=== PATIENT | female | born 1940 | race Caucasian/White ===

== ENCOUNTER 2020-08-09 11:58 | Emergency (ER) | payer MEDICARE, OTHER | END 2020-08-09 13:35 | disposition home or self-care (01) | LOC: MADERS 11:58 | DX: S81.812A Laceration without foreign body, left lower leg, initial encounter (principal); I10 Essential (primary) hypertension; I48.91 Unspecified atrial fibrillation; Z79.899 Other long term (current) drug therapy; W45.8XXA Other foreign body or object entering through skin, initial encounter | CPT/HCPCS: 12002 ==

== ENCOUNTER 2020-09-24 17:46 | Emergency (ER) | payer MEDICARE, OTHER ==
--- NOTE | 2020-09-24 18:43 | RAD ---
LEFT HIP RADIOGRAPHS TWO VIEWS: 09/24/20 PROVIDED CLINICAL HISTORY: Pain status post fall. FINDINGS: There is a fracture of the proximal left femur which is probable basicervical given lack of apparent lesser trochanteric involvement. 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 Left hip joint space appears maintain ed. Extensive vascular calcifications are seen. IMPRESSION: Displaced left proximal femoral fracture. POS: SEVEN
--- NOTE | 2020-09-24 18:46 | RAD ---
LEFT KNEE RADIOGRAPHS FOUR VIEWS: 09/24/20 PROVIDED CLINICAL HISTORY: Pain status post injury. FINDINGS: Low grade chondroid lesion is demonstrated involving the distal femoral metaphyseal region. Vascular calcification is noted. Prominent medial femorotibial joint space loss. Chondrocalcinosis. Possible k nee joint effusion. IMPRESSION: No evidence for an acute osseous abnormality. If there is persistent clinical concern, conservative m anagement and follow-up imaging are advised. POS: SEVEN
[2020-09-24] MEDS ORDERED: Fentanyl 100 MCG/2 ML VIAL ONE (19:21)
== END 2020-09-24 20:37 | disposition short-term general hospital (02) ==
LOC: MADERS 17:46
DX: S72.142A Displaced intertrochanteric fracture of left femur, initial encounter for closed fracture (principal); I48.91 Unspecified atrial fibrillation; I10 Essential (primary) hypertension; Z79.899 Other long term (current) drug therapy; V89.9XXA Person injured in unspecified vehicle accident, initial encounter
CPT/HCPCS: 96374; J3010

== ENCOUNTER 2021-01-23 11:27 | Inpatient (IN) | payer MEDICARE, OTHER ==
[2021-01-23 12:43] LABS: Bilirubin Negative (Negative); Blood, Urine Moderate (Negative); Clarity Slightly Cloudy (Clear); Glucose, Urine (Dipstick) Negative (Negative); Ketone, Urine Negative (Negative); Leukocyte Moderate (Negative); Nitrite Negative (Negative); Protein, Urine (Dipstick) 30 mg/dL (Neg-Trace); Specific Gravity, Urine 1.025 (1.005-1.030); Urobilinogen 0.2 mg/dL (Less than 2)
[2021-01-23 12:49] LABS: MDiff Complete? YES; Manual Diff?? YES; Mean Corpuscular Hemoglobin 27.2 pg (27.0-31.0); Mean Corpuscular Volume 90.6 fL (78.0-98.0); Mean Platelet Volume 7.6 fL (7.4-10.4); Platelet Count 323 thou/uL (130-400); RBC Distribution Width 15.8 % (11.5-14.5); Red Blood Cell (RBC) Count 4.44 mill/uL (4.20-5.40); White Blood Cell (WBC) Count 14.4 thou/uL (4.8-10.8)
[2021-01-23 12:50] LABS: Anisocytosis SLIGHT = 6-15 cells (100X) (0-5/hpf); Band 2 % (5-11); Eosinophils 1 % (0-10); Lymphocytes 18 % (21-51); Monocytes 10 % (0-10); Neutrophil 69 % (42-75); Platelet Morphology Comment Appears Adequate
[2021-01-23 12:51] LABS: ALT (SGPT) Less than 7 U/L (8-55); AST (SGOT) 16 U/L (5-34); Alkaline Phosphatase 102 U/L (40-110); Anion Gap 16 mmol/L (10-20); BUN (Urea Nitrogen) 19 mg/dL (9.8-20.1); Bilirubin, Total 1.4 mg/dL (0.2-1.2); Calc. Creatinine Clearance 0 mL/min (70-130); Calcium 8.9 mg/dL (7.8-10.44); Carbon Dioxide 22 mmol/L (23-31); Chloride 95 mmol/L (98-107); Globulin 4.5 g/dL (2.4-3.5); Glucose 101 mg/dL (83-110); Potassium 3.7 mmol/L (3.5-5.1); Protein, Total 7.5 g/dL (5.8-8.1); Sodium 129 mmol/L (136-145)
[2021-01-23 12:54] LABS: WBC/HPF Greater Than 50 HPF (0-3)
[2021-01-23 12:55] LABS: Bacteria/HPF 2+ HPF (None Seen)
[2021-01-23] MEDS ORDERED: cefTRIAXone\\ROCEPHIN 1 GM VIAL ONE (13:33)
[2021-01-23] MEDS ORDERED: Sodium Chloride 0.9% 100 ML ONE (13:33)
[2021-01-23] MEDS ORDERED: traMADol HCl 50 MG TAB ONE (15:31)
[2021-01-23] MEDS ORDERED: Acetaminophen 325 MG TAB PO PRN ×2 (16:30→17:08)
[2021-01-23] MEDS ORDERED: Senokot S 8.6-50 MG TAB PO PRN (16:30)
[2021-01-23 16:32] LABS: SARS-CoV-2 NAA Rapid Test Not Detected (NotDetected)
[2021-01-23] MEDS ORDERED: Acetaminophen 650 MG Suppository PR PRN (17:08)
[2021-01-23] MEDS ORDERED: Ondansetron ODT 4 MG TAB PO PRN (17:09)
[2021-01-23] MEDS ORDERED: Furosemide 40 MG TAB PO PRN (17:13)
[2021-01-23] MEDS ORDERED: Loratadine 10 MG TAB PO PRN (17:17)
[2021-01-23] MEDS ORDERED: Polyethylene Glycol OPTH DROP 15 ML BOT EA EYE PRN (17:17)
[2021-01-23 17:36] VITALS: BMI 31.8
[2021-01-23] MEDS: rOPINIRole HCl 0.25 MG TAB PO SCH (21:15)
[2021-01-23] MEDS: hydrALAZINE 25 MG TAB PO SCH (21:16)
[2021-01-23] MEDS: HYDROcodone/Acetaminophen 5/325 mg Tablet PO PRN (22:50)
[2021-01-24] MEDS: rOPINIRole HCl 0.25 MG TAB PO SCH ×2 (02:24→21:19)
[2021-01-24 05:20] LABS: Anion Gap 14 mmol/L (10-20); BUN (Urea Nitrogen) 20 mg/dL (9.8-20.1); Calc. Creatinine Clearance 45 mL/min (70-130); Calcium 8.9 mg/dL (7.8-10.44); Carbon Dioxide 25 mmol/L (23-31); Chloride 95 mmol/L (98-107); Glucose 95 mg/dL (83-110); Potassium 3.4 mmol/L (3.5-5.1); Sodium 131 mmol/L (136-145)
[2021-01-24 05:25] LABS: Anisocytosis SLIGHT = 6-15 cells (100X) (0-5/hpf); Band 12 % (5-11); Eosinophils 1 % (0-10); Hemoglobin 11.4 g/dL (12.0-16.0); Large Platelets SLIGHT; Lymphocytes 14 % (21-51); MDiff Complete? YES; Mean Corpuscular Hemoglobin 27.7 pg (27.0-31.0); Mean Corpuscular Volume 89.5 fL (78.0-98.0); Mean Platelet Volume 7.7 fL (7.4-10.4); Monocytes 9 % (0-10); Neutrophil 64 % (42-75); Platelet Count 310 thou/uL (130-400); Platelet Morphology Comment Appears Adequate; RBC Distribution Width 15.7 % (11.5-14.5); Red Blood Cell (RBC) Count 4.12 mill/uL (4.20-5.40); Stomatocytes SLIGHT = 2-5 cells (100X) (0-1/hpf); White Blood Cell (WBC) Count 11.7 thou/uL (4.8-10.8)
[2021-01-24] MEDS ORDERED: Levothyroxine Sodium 25 MCG TAB PO SCH (06:00)
[2021-01-24] MEDS: Hydrochlorothiazide 25 MG TAB PO SCH (08:08)
[2021-01-24] MEDS: Cefdinir 300 MG CAP PO SCH ×2 (08:08→21:19)
[2021-01-24] MEDS: hydrALAZINE 25 MG TAB PO SCH ×3 (08:08→21:20)
[2021-01-24] MEDS: Lisinopril 10 MG TAB PO SCH (08:09)
[2021-01-24] MEDS: HYDROcodone/Acetaminophen 5/325 mg Tablet PO PRN ×2 (11:09→21:25)
[2021-01-25] MEDS: rOPINIRole HCl 0.25 MG TAB PO SCH ×2 (02:58→21:07)
[2021-01-25] MEDS: Levothyroxine Sodium 100 MCG TAB PO SCH (06:05)
[2021-01-25] MEDS: Cefdinir 300 MG CAP PO SCH ×2 (08:09→21:07)
[2021-01-25] MEDS: Hydrochlorothiazide 25 MG TAB PO SCH (08:09)
[2021-01-25] MEDS: Lisinopril 10 MG TAB PO SCH (08:10)
[2021-01-25] MEDS: hydrALAZINE 25 MG TAB PO SCH ×3 (08:10→21:08)
[2021-01-25] MEDS: HYDROcodone/Acetaminophen 5/325 mg Tablet PO PRN ×3 (08:17→21:09)
[2021-01-25] MEDS: Fluticasone Propionate Nasal Spray 16 gm Bottle NASAL SCH (08:20)
[2021-01-25 13:08] LABS: #Basophils 0.2 thou/uL (0.0-0.2); #Eosinphils 0.1 thou/uL (0.0-0.7); #Lymphocytes 1.3 thou/uL (1.20-3.40); #Monocytes 1.1 thou/uL (0.11-0.59); #Neutrophils 8.4 thou/uL (1.40-6.50); %Basophils 1.8 % (0.0-1.0); %Eosinophils 0.7 % (0.0-10.0); %Lymphocytes 11.5 % (21.0-51.0); %Monocytes 10.3 % (0.0-10.0); %Neutrophils 75.7 % (42.0-75.0); Hemoglobin 11.6 g/dL (12.0-16.0); Mean Corpuscular HGB CONC 30.5 g/dL (32.0-36.0); Mean Corpuscular Hemoglobin 27.4 pg (27.0-31.0); Mean Corpuscular Volume 89.7 fL (78.0-98.0); Mean Platelet Volume 7.9 fL (7.4-10.4); Platelet Count 344 thou/uL (130-400); RBC Distribution Width 15.5 % (11.5-14.5); Red Blood Cell (RBC) Count 4.25 mill/uL (4.20-5.40); White Blood Cell (WBC) Count 11.1 thou/uL (4.8-10.8)
[2021-01-25] MEDS ORDERED: predniSONE 20 MG TAB PO SCH (13:15)
[2021-01-26] MEDS: rOPINIRole HCl 0.25 MG TAB PO SCH (03:42)
[2021-01-26] MEDS: Levothyroxine Sodium 100 MCG TAB PO SCH (05:03)
[2021-01-26] MEDS ORDERED: predniSONE 20 MG TAB PO SCH (08:00)
[2021-01-26] MEDS: Cefdinir 300 MG CAP PO SCH (08:02)
[2021-01-26] MEDS: Hydrochlorothiazide 25 MG TAB PO SCH (08:03)
[2021-01-26] MEDS: Lisinopril 10 MG TAB PO SCH (08:03)
[2021-01-26] MEDS: hydrALAZINE 25 MG TAB PO SCH (08:03)
[2021-01-26] MEDS: Fluticasone Propionate Nasal Spray 16 gm Bottle NASAL SCH (08:06)
[2021-01-26 08:07] VITALS: BP 163/74
[2021-01-26 09:08] VITALS: TEMP 97.7
[2021-01-27] MEDS ORDERED: Allopurinol 100 MG TAB PO SCH (09:00)
== END 2021-01-26 11:41 | disposition home or self-care (01) | DRG 534 ==
LOC: MADERS 11:27 → MADMS 15:29
PROVIDERS: ADMIT Family Medicine; ATTEND Family Medicine
DX: S72.415A Nondisplaced unspecified condyle fracture of lower end of left femur, initial encounter for closed fracture (principal); N39.0 Urinary tract infection, site not specified; E87.1 Hypo-osmolality and hyponatremia; R26.89 Other abnormalities of gait and mobility; M06.9 Rheumatoid arthritis, unspecified; M10.9 Gout, unspecified; E03.9 Hypothyroidism, unspecified; I48.0 Paroxysmal atrial fibrillation; H91.91 Unspecified hearing loss, right ear; G47.33 Obstructive sleep apnea (adult) (pediatric); R29.6 Repeated falls; M79.89 Other specified soft tissue disorders; M79.671 Pain in right foot; W18.30XA Fall on same level, unspecified, initial encounter; Z20.822 Contact with and (suspected) exposure to COVID-19; N18.9 Chronic kidney disease, unspecified; G25.81 Restless legs syndrome; I12.9 Hypertensive chronic kidney disease with stage 1 through stage 4 chronic kidney disease, or unspecified chronic kidney disease; Z79.899 Other long term (current) drug therapy; Y92.009 Unspecified place in unspecified non-institutional (private) residence as the place of occurrence of the external cause; Z90.710 Acquired absence of both cervix and uterus; Z90.49 Acquired absence of other specified parts of digestive tract; Z98.890 Other specified postprocedural states
CPT/HCPCS: 0240U; 27508; 36415; 51701; 80048; 80053; 81003; 81015; 83605; 84443; 84550; 85007; 85025; 85027; 85652; 87077; 87086; 87186; 96365; J0696; J3490; J7512

== ENCOUNTER 2021-01-26 11:55 | Inpatient (IN) | payer MEDICARE, OTHER ==
[2021-01-26] MEDS ORDERED: Furosemide 40 MG TAB PO PRN (14:46)
[2021-01-26] MEDS ORDERED: Ondansetron ODT 4 MG TAB PO PRN (14:49)
[2021-01-26] MEDS ORDERED: Bisacodyl 5 MG TAB PO PRN (14:49)
[2021-01-26] MEDS: hydrALAZINE 25 MG TAB PO SCH ×2 (15:25→20:35)
[2021-01-26] MEDS ORDERED: Acetaminophen 500 MG TAB PO SCH ×3 (15:30→22:00)
[2021-01-26] MEDS: Cefdinir 300 MG CAP PO SCH (20:34)
[2021-01-26] MEDS: rOPINIRole HCl 0.25 MG TAB PO SCH (20:36)
[2021-01-26] MEDS: HYDROcodone/Acetaminophen 5/325 mg Tablet PO PRN (20:36)
[2021-01-27] MEDS: Levothyroxine Sodium 100 MCG TAB PO SCH (05:25)
[2021-01-27] MEDS: HYDROcodone/Acetaminophen 5/325 mg Tablet PO PRN ×3 (05:25→20:50)
[2021-01-27] MEDS: hydrALAZINE 25 MG TAB PO SCH ×3 (08:58→20:49)
[2021-01-27] MEDS: Allopurinol 100 MG TAB PO SCH (08:58)
[2021-01-27] MEDS: Cefdinir 300 MG CAP PO SCH ×2 (08:59→20:49)
[2021-01-27] MEDS: Lisinopril 10 MG TAB PO SCH (08:59)
[2021-01-27] MEDS: Hydrochlorothiazide 25 MG TAB PO SCH (08:59)
[2021-01-27] MEDS: predniSONE 20 MG TAB PO SCH (08:59)
[2021-01-27] MEDS ORDERED: Lisinopril 20 MG TAB PO SCH (09:00)
[2021-01-27] MEDS: Fluticasone Propionate Nasal Spray 16 gm Bottle NASAL SCH (09:02)
[2021-01-27 14:39] LABS: Anion Gap 14 mmol/L (10-20); BUN (Urea Nitrogen) 28 mg/dL (9.8-20.1); Calc. Creatinine Clearance 43 mL/min (70-130); Carbon Dioxide 25 mmol/L (23-31); Chloride 99 mmol/L (98-107); Glucose 148 mg/dL (83-110); Potassium 3.8 mmol/L (3.5-5.1); Sodium 134 mmol/L (136-145)
[2021-01-27] MEDS: rOPINIRole HCl 0.25 MG TAB PO SCH (20:50)
[2021-01-28] MEDS: Levothyroxine Sodium 100 MCG TAB PO SCH (05:12)
[2021-01-28] MEDS: HYDROcodone/Acetaminophen 5/325 mg Tablet PO PRN ×2 (05:12→21:14)
[2021-01-28 05:31] LABS: Hemoglobin 10.1 g/dL (12.0-16.0); Platelet Count 346 thou/uL (130-400)
[2021-01-28] MEDS: Cefdinir 300 MG CAP PO SCH ×2 (08:44→21:12)
[2021-01-28] MEDS: Hydrochlorothiazide 25 MG TAB PO SCH (08:44)
[2021-01-28] MEDS: Fluticasone Propionate Nasal Spray 16 gm Bottle NASAL SCH (08:44)
[2021-01-28] MEDS: Lisinopril 10 MG TAB PO SCH (08:45)
[2021-01-28] MEDS: Allopurinol 100 MG TAB PO SCH (08:45)
[2021-01-28] MEDS: predniSONE 20 MG TAB PO SCH (08:45)
[2021-01-28] MEDS: hydrALAZINE 25 MG TAB PO SCH ×3 (08:45→21:13)
[2021-01-28] MEDS: rOPINIRole HCl 0.25 MG TAB PO SCH (21:13)
[2021-01-28] MEDS: Senokot S 8.6-50 MG TAB PO PRN (21:14)
[2021-01-29] MEDS: Levothyroxine Sodium 100 MCG TAB PO SCH (05:31)
[2021-01-29] MEDS: Allopurinol 100 MG TAB PO SCH (08:01)
[2021-01-29] MEDS: Cefdinir 300 MG CAP PO SCH ×2 (08:02→20:28)
[2021-01-29] MEDS: Lisinopril 10 MG TAB PO SCH (08:02)
[2021-01-29] MEDS: predniSONE 20 MG TAB PO SCH (08:03)
[2021-01-29] MEDS: Hydrochlorothiazide 25 MG TAB PO SCH (08:03)
[2021-01-29] MEDS: Fluticasone Propionate Nasal Spray 16 gm Bottle NASAL SCH (08:03)
[2021-01-29] MEDS: hydrALAZINE 25 MG TAB PO SCH ×3 (08:14→20:28)
[2021-01-29] MEDS: rOPINIRole HCl 0.25 MG TAB PO SCH (20:28)
[2021-01-29] MEDS: HYDROcodone/Acetaminophen 5/325 mg Tablet PO PRN (21:54)
[2021-01-30] MEDS: Levothyroxine Sodium 100 MCG TAB PO SCH (05:21)
[2021-01-30] MEDS: Lisinopril 10 MG TAB PO SCH (08:41)
[2021-01-30] MEDS: Hydrochlorothiazide 25 MG TAB PO SCH (08:41)
[2021-01-30] MEDS: Fluticasone Propionate Nasal Spray 16 gm Bottle NASAL SCH (08:41)
[2021-01-30] MEDS: hydrALAZINE 25 MG TAB PO SCH ×3 (08:42→20:13)
[2021-01-30] MEDS: Allopurinol 100 MG TAB PO SCH (08:42)
[2021-01-30] MEDS: Cefdinir 300 MG CAP PO SCH ×2 (08:42→20:13)
[2021-01-30] MEDS: HYDROcodone/Acetaminophen 5/325 mg Tablet PO PRN ×2 (14:56→20:11)
[2021-01-30] MEDS: rOPINIRole HCl 0.25 MG TAB PO SCH (20:13)
[2021-01-30] MEDS: Senokot S 8.6-50 MG TAB PO PRN (20:13)
[2021-01-31] MEDS: Levothyroxine Sodium 100 MCG TAB PO SCH (05:45)
[2021-01-31] MEDS: Hydrochlorothiazide 25 MG TAB PO SCH (09:26)
[2021-01-31] MEDS: HYDROcodone/Acetaminophen 5/325 mg Tablet PO PRN ×2 (09:31→18:16)
[2021-01-31] MEDS: Cefdinir 300 MG CAP PO SCH ×2 (09:31→20:17)
[2021-01-31] MEDS: Lisinopril 10 MG TAB PO SCH (09:33)
[2021-01-31] MEDS: hydrALAZINE 25 MG TAB PO SCH ×3 (09:33→20:17)
[2021-01-31] MEDS: Allopurinol 100 MG TAB PO SCH (09:33)
[2021-01-31] MEDS: Fluticasone Propionate Nasal Spray 16 gm Bottle NASAL SCH (09:34)
[2021-01-31] MEDS: rOPINIRole HCl 0.25 MG TAB PO SCH (20:17)
[2021-02-01] MEDS: Levothyroxine Sodium 100 MCG TAB PO SCH (05:36)
[2021-02-01] MEDS: Hydrochlorothiazide 25 MG TAB PO SCH (09:22)
[2021-02-01] MEDS: Cefdinir 300 MG CAP PO SCH ×2 (09:23→20:20)
[2021-02-01] MEDS: Allopurinol 100 MG TAB PO SCH (09:23)
[2021-02-01] MEDS: hydrALAZINE 25 MG TAB PO SCH ×3 (09:23→20:21)
[2021-02-01] MEDS: Lisinopril 10 MG TAB PO SCH (09:23)
[2021-02-01] MEDS: Fluticasone Propionate Nasal Spray 16 gm Bottle NASAL SCH (09:24)
[2021-02-01] MEDS: HYDROcodone/Acetaminophen 5/325 mg Tablet PO PRN ×2 (12:50→20:30)
[2021-02-01] MEDS: rOPINIRole HCl 0.25 MG TAB PO SCH (20:21)
[2021-02-02] MEDS: Levothyroxine Sodium 100 MCG TAB PO SCH (05:39)
[2021-02-02] MEDS: Hydrochlorothiazide 25 MG TAB PO SCH (09:06)
[2021-02-02] MEDS: Allopurinol 100 MG TAB PO SCH (09:07)
[2021-02-02] MEDS: hydrALAZINE 25 MG TAB PO SCH ×3 (09:07→20:20)
[2021-02-02] MEDS: Lisinopril 10 MG TAB PO SCH (09:07)
[2021-02-02] MEDS: Fluticasone Propionate Nasal Spray 16 gm Bottle NASAL SCH (09:08)
[2021-02-02] MEDS: HYDROcodone/Acetaminophen 5/325 mg Tablet PO PRN ×2 (09:10→20:18)
[2021-02-02] MEDS: rOPINIRole HCl 0.25 MG TAB PO SCH (20:20)
[2021-02-03] MEDS: Levothyroxine Sodium 100 MCG TAB PO SCH (05:29)
[2021-02-03] MEDS: Fluticasone Propionate Nasal Spray 16 gm Bottle NASAL SCH (08:18)
[2021-02-03] MEDS: Allopurinol 100 MG TAB PO SCH (08:19)
[2021-02-03] MEDS: Lisinopril 10 MG TAB PO SCH (08:19)
[2021-02-03] MEDS: hydrALAZINE 25 MG TAB PO SCH ×3 (08:19→20:09)
[2021-02-03] MEDS: Hydrochlorothiazide 25 MG TAB PO SCH (08:19)
[2021-02-03] MEDS: HYDROcodone/Acetaminophen 5/325 mg Tablet PO PRN (09:50)
[2021-02-03] MEDS: rOPINIRole HCl 0.25 MG TAB PO SCH (20:10)
[2021-02-04] MEDS: Levothyroxine Sodium 100 MCG TAB PO SCH (05:35)
[2021-02-04] MEDS: Fluticasone Propionate Nasal Spray 16 gm Bottle NASAL SCH (08:16)
[2021-02-04] MEDS: hydrALAZINE 25 MG TAB PO SCH ×3 (08:16→20:14)
[2021-02-04] MEDS: Allopurinol 100 MG TAB PO SCH (08:16)
[2021-02-04] MEDS: Lisinopril 10 MG TAB PO SCH (08:16)
[2021-02-04] MEDS: Hydrochlorothiazide 25 MG TAB PO SCH (08:16)
[2021-02-04] MEDS: HYDROcodone/Acetaminophen 5/325 mg Tablet PO PRN (11:04)
[2021-02-04] MEDS: rOPINIRole HCl 0.25 MG TAB PO SCH (20:14)
[2021-02-05] MEDS: Levothyroxine Sodium 100 MCG TAB PO SCH (05:10)
[2021-02-05 05:27] LABS: Platelet Count 378 thou/uL (130-400)
[2021-02-05] MEDS: HYDROcodone/Acetaminophen 5/325 mg Tablet PO PRN (07:57)
[2021-02-05] MEDS: Hydrochlorothiazide 25 MG TAB PO SCH (08:01)
[2021-02-05] MEDS: hydrALAZINE 25 MG TAB PO SCH ×3 (08:01→20:01)
[2021-02-05] MEDS: Lisinopril 10 MG TAB PO SCH (08:02)
[2021-02-05] MEDS: Fluticasone Propionate Nasal Spray 16 gm Bottle NASAL SCH (08:02)
[2021-02-05] MEDS: Allopurinol 100 MG TAB PO SCH (08:02)
[2021-02-05] MEDS: Calcium Carbonate 500 MG ChewTAB PO PRN (15:48)
[2021-02-05] MEDS: rOPINIRole HCl 0.25 MG TAB PO SCH (20:01)
[2021-02-06] MEDS: Levothyroxine Sodium 100 MCG TAB PO SCH (05:19)
[2021-02-06] MEDS: hydrALAZINE 25 MG TAB PO SCH ×3 (08:45→20:57)
[2021-02-06] MEDS: Hydrochlorothiazide 25 MG TAB PO SCH (08:45)
[2021-02-06] MEDS: Allopurinol 100 MG TAB PO SCH (08:45)
[2021-02-06] MEDS: Fluticasone Propionate Nasal Spray 16 gm Bottle NASAL SCH (08:46)
[2021-02-06] MEDS: Lisinopril 10 MG TAB PO SCH (08:46)
[2021-02-06] MEDS ORDERED: HYDROcodone/Acetaminophen 5/325 mg Tablet PO PRN (10:43)
[2021-02-06] MEDS: HYDROcodone/Acetaminophen 5/325 mg Tablet PO PRN (11:19)
[2021-02-06] MEDS: rOPINIRole HCl 0.25 MG TAB PO SCH (20:57)
[2021-02-07] MEDS: Levothyroxine Sodium 100 MCG TAB PO SCH (05:20)
[2021-02-07] MEDS: Allopurinol 100 MG TAB PO SCH (09:22)
[2021-02-07] MEDS: HYDROcodone/Acetaminophen 5/325 mg Tablet PO PRN (09:22)
[2021-02-07] MEDS: hydrALAZINE 25 MG TAB PO SCH ×3 (09:23→20:27)
[2021-02-07] MEDS: Hydrochlorothiazide 25 MG TAB PO SCH (09:24)
[2021-02-07] MEDS: Fluticasone Propionate Nasal Spray 16 gm Bottle NASAL SCH (09:24)
[2021-02-07] MEDS: Lisinopril 10 MG TAB PO SCH (09:24)
[2021-02-07] MEDS: Sodium Chloride 0.65% Nasal 44 ML BOT EA NARE PRN (15:05)
[2021-02-07] MEDS: rOPINIRole HCl 0.25 MG TAB PO SCH (20:27)
[2021-02-08] MEDS: Levothyroxine Sodium 100 MCG TAB PO SCH (05:30)
[2021-02-08] MEDS: Hydrochlorothiazide 25 MG TAB PO SCH (08:46)
[2021-02-08] MEDS: Allopurinol 100 MG TAB PO SCH (08:46)
[2021-02-08] MEDS: Lisinopril 10 MG TAB PO SCH (08:46)
[2021-02-08] MEDS: Fluticasone Propionate Nasal Spray 16 gm Bottle NASAL SCH (08:47)
[2021-02-08] MEDS: hydrALAZINE 25 MG TAB PO SCH ×3 (08:51→21:02)
[2021-02-08] MEDS: rOPINIRole HCl 0.25 MG TAB PO SCH (21:02)
[2021-02-09] MEDS: HYDROcodone/Acetaminophen 5/325 mg Tablet PO PRN ×2 (02:21→20:46)
[2021-02-09] MEDS: Levothyroxine Sodium 100 MCG TAB PO SCH (05:54)
[2021-02-09] MEDS: Hydrochlorothiazide 25 MG TAB PO SCH (08:15)
[2021-02-09] MEDS: hydrALAZINE 25 MG TAB PO SCH ×3 (08:15→20:43)
[2021-02-09] MEDS: Allopurinol 100 MG TAB PO SCH (08:15)
[2021-02-09] MEDS: Lisinopril 10 MG TAB PO SCH (08:15)
[2021-02-09] MEDS: Fluticasone Propionate Nasal Spray 16 gm Bottle NASAL SCH (08:16)
[2021-02-09] MEDS: rOPINIRole HCl 0.25 MG TAB PO SCH (20:43)
[2021-02-10] MEDS: Levothyroxine Sodium 100 MCG TAB PO SCH (05:22)
[2021-02-10] MEDS: Allopurinol 100 MG TAB PO SCH (08:44)
[2021-02-10] MEDS: HYDROcodone/Acetaminophen 5/325 mg Tablet PO PRN (08:47)
[2021-02-10] MEDS: Hydrochlorothiazide 25 MG TAB PO SCH (08:49)
[2021-02-10] MEDS: hydrALAZINE 25 MG TAB PO SCH ×3 (08:49→21:43)
[2021-02-10] MEDS: Lisinopril 10 MG TAB PO SCH (08:49)
[2021-02-10] MEDS: Fluticasone Propionate Nasal Spray 16 gm Bottle NASAL SCH (08:50)
[2021-02-10] MEDS: Sodium Chloride 0.65% Nasal 44 ML BOT EA NARE PRN (08:50)
[2021-02-10] MEDS: rOPINIRole HCl 0.25 MG TAB PO SCH (21:43)
[2021-02-11] MEDS: Levothyroxine Sodium 100 MCG TAB PO SCH (05:38)
[2021-02-11] MEDS: Lisinopril 10 MG TAB PO SCH (08:01)
[2021-02-11] MEDS: HYDROcodone/Acetaminophen 5/325 mg Tablet PO PRN (08:01)
[2021-02-11] MEDS: hydrALAZINE 25 MG TAB PO SCH ×3 (08:02→20:52)
[2021-02-11] MEDS: Hydrochlorothiazide 25 MG TAB PO SCH (08:02)
[2021-02-11] MEDS: Allopurinol 100 MG TAB PO SCH (08:02)
[2021-02-11] MEDS: Fluticasone Propionate Nasal Spray 16 gm Bottle NASAL SCH (08:04)
[2021-02-11] MEDS: rOPINIRole HCl 0.25 MG TAB PO SCH (20:52)
[2021-02-12] MEDS: Levothyroxine Sodium 100 MCG TAB PO SCH (05:04)
[2021-02-12] MEDS: Senokot S 8.6-50 MG TAB PO PRN (05:06)
[2021-02-12 05:35] LABS: Hemoglobin 10.5 g/dL (12.0-16.0); Platelet Count 317 thou/uL (130-400)
[2021-02-12] MEDS: Allopurinol 100 MG TAB PO SCH (08:40)
[2021-02-12] MEDS: Hydrochlorothiazide 25 MG TAB PO SCH (08:40)
[2021-02-12] MEDS: hydrALAZINE 25 MG TAB PO SCH ×4 (08:40→20:33)
[2021-02-12] MEDS: Lisinopril 10 MG TAB PO SCH (08:41)
[2021-02-12] MEDS: Fluticasone Propionate Nasal Spray 16 gm Bottle NASAL SCH (08:43)
[2021-02-12] MEDS ORDERED: HYDROcodone/Acetaminophen 5/325 mg Tablet PO PRN (09:03)
[2021-02-12] MEDS: rOPINIRole HCl 0.25 MG TAB PO SCH (20:29)
[2021-02-12] MEDS: Calcium Carbonate 500 MG ChewTAB PO PRN (22:00)
[2021-02-12] MEDS: HYDROcodone/Acetaminophen 5/325 mg Tablet PO PRN (22:01)
[2021-02-13] MEDS: Levothyroxine Sodium 100 MCG TAB PO SCH (05:32)
[2021-02-13] MEDS: HYDROcodone/Acetaminophen 5/325 mg Tablet PO PRN (08:43)
[2021-02-13] MEDS: Allopurinol 100 MG TAB PO SCH (08:45)
[2021-02-13] MEDS: Hydrochlorothiazide 25 MG TAB PO SCH (08:45)
[2021-02-13] MEDS: hydrALAZINE 25 MG TAB PO SCH ×3 (08:45→21:01)
[2021-02-13] MEDS: Lisinopril 10 MG TAB PO SCH (08:45)
[2021-02-13] MEDS: Fluticasone Propionate Nasal Spray 16 gm Bottle NASAL SCH (08:46)
[2021-02-13] MEDS: rOPINIRole HCl 0.25 MG TAB PO SCH (21:02)
[2021-02-14] MEDS: Levothyroxine Sodium 100 MCG TAB PO SCH (06:03)
[2021-02-14] MEDS: HYDROcodone/Acetaminophen 5/325 mg Tablet PO PRN (09:22)
[2021-02-14] MEDS: Lisinopril 10 MG TAB PO SCH (09:22)
[2021-02-14] MEDS: Sodium Chloride 0.65% Nasal 44 ML BOT EA NARE PRN (09:24)
[2021-02-14] MEDS: Fluticasone Propionate Nasal Spray 16 gm Bottle NASAL SCH (09:24)
[2021-02-14] MEDS: Allopurinol 100 MG TAB PO SCH (09:25)
[2021-02-14] MEDS: Hydrochlorothiazide 25 MG TAB PO SCH (09:25)
[2021-02-14] MEDS: hydrALAZINE 25 MG TAB PO SCH ×3 (09:25→21:09)
[2021-02-14] MEDS: rOPINIRole HCl 0.25 MG TAB PO SCH (21:09)
[2021-02-14] MEDS: Acetaminophen 325 MG TAB PO PRN (21:15)
[2021-02-15] MEDS: Levothyroxine Sodium 100 MCG TAB PO SCH (05:58)
[2021-02-15] MEDS: hydrALAZINE 25 MG TAB PO SCH ×3 (09:00→20:10)
[2021-02-15] MEDS: Lisinopril 10 MG TAB PO SCH (09:01)
[2021-02-15] MEDS: Allopurinol 100 MG TAB PO SCH (09:01)
[2021-02-15] MEDS: Fluticasone Propionate Nasal Spray 16 gm Bottle NASAL SCH (09:03)
[2021-02-15] MEDS: Hydrochlorothiazide 25 MG TAB PO SCH (09:07)
[2021-02-15] MEDS: Acetaminophen 325 MG TAB PO PRN (20:08)
[2021-02-15] MEDS: rOPINIRole HCl 0.25 MG TAB PO SCH (20:10)
[2021-02-16] MEDS: Levothyroxine Sodium 100 MCG TAB PO SCH (05:39)
[2021-02-16] MEDS: Fluticasone Propionate Nasal Spray 16 gm Bottle NASAL SCH (09:34)
[2021-02-16] MEDS: hydrALAZINE 25 MG TAB PO SCH ×3 (09:35→20:09)
[2021-02-16] MEDS: Hydrochlorothiazide 25 MG TAB PO SCH (09:35)
[2021-02-16] MEDS: Lisinopril 10 MG TAB PO SCH (09:35)
[2021-02-16] MEDS: Allopurinol 100 MG TAB PO SCH (09:35)
[2021-02-16] MEDS: Acetaminophen 325 MG TAB PO PRN ×2 (09:36→20:20)
[2021-02-16] MEDS: Sodium Chloride 0.65% Nasal 44 ML BOT EA NARE PRN (09:36)
[2021-02-16] MEDS: rOPINIRole HCl 0.25 MG TAB PO SCH (20:09)
[2021-02-17] MEDS: Levothyroxine Sodium 100 MCG TAB PO SCH (05:32)
[2021-02-17] MEDS: Hydrochlorothiazide 25 MG TAB PO SCH (09:16)
[2021-02-17] MEDS: hydrALAZINE 25 MG TAB PO SCH ×3 (09:16→20:15)
[2021-02-17] MEDS: Allopurinol 100 MG TAB PO SCH (09:16)
[2021-02-17] MEDS: Lisinopril 10 MG TAB PO SCH (09:16)
[2021-02-17] MEDS: Acetaminophen 325 MG TAB PO PRN (09:17)
[2021-02-17] MEDS: Fluticasone Propionate Nasal Spray 16 gm Bottle NASAL SCH (09:18)
[2021-02-17] MEDS: HYDROcodone/Acetaminophen 5/325 mg Tablet PO PRN (20:14)
[2021-02-17] MEDS: rOPINIRole HCl 0.25 MG TAB PO SCH (20:15)
[2021-02-18] MEDS: HYDROcodone/Acetaminophen 5/325 mg Tablet PO PRN (01:44)
[2021-02-18] MEDS: Levothyroxine Sodium 100 MCG TAB PO SCH (05:37)
[2021-02-18] MEDS: Allopurinol 100 MG TAB PO SCH (08:19)
[2021-02-18] MEDS: Lisinopril 10 MG TAB PO SCH (08:20)
[2021-02-18] MEDS: hydrALAZINE 25 MG TAB PO SCH ×3 (08:20→20:28)
[2021-02-18] MEDS: Hydrochlorothiazide 25 MG TAB PO SCH (08:20)
[2021-02-18] MEDS: Fluticasone Propionate Nasal Spray 16 gm Bottle NASAL SCH (08:21)
[2021-02-18] MEDS: Acetaminophen 325 MG TAB PO PRN (20:27)
[2021-02-18] MEDS ORDERED: rOPINIRole HCl 0.25 MG TAB PO SCH (21:00)
[2021-02-19] MEDS: Levothyroxine Sodium 100 MCG TAB PO SCH (05:26)
[2021-02-19 07:27] VITALS: BP 179/83; TEMP 98
[2021-02-19] MEDS: Fluticasone Propionate Nasal Spray 16 gm Bottle NASAL SCH (08:31)
[2021-02-19] MEDS: Lisinopril 10 MG TAB PO SCH (08:32)
[2021-02-19] MEDS: Hydrochlorothiazide 25 MG TAB PO SCH (08:33)
[2021-02-19] MEDS: hydrALAZINE 25 MG TAB PO SCH (08:33)
[2021-02-19] MEDS: Allopurinol 100 MG TAB PO SCH (08:33)
[2021-02-19 12:40] VITALS: BMI 32.2
== END 2021-02-19 14:00 | disposition home or self-care (01) | DRG 534 ==
LOC: MADMS 11:55
PROVIDERS: ADMIT Family Medicine; ATTEND Family Medicine
DX: S72.415A Nondisplaced unspecified condyle fracture of lower end of left femur, initial encounter for closed fracture (principal); E87.1 Hypo-osmolality and hyponatremia; N30.00 Acute cystitis without hematuria; R26.89 Other abnormalities of gait and mobility; M10.9 Gout, unspecified; H81.91 Unspecified disorder of vestibular function, right ear; E03.9 Hypothyroidism, unspecified; G47.33 Obstructive sleep apnea (adult) (pediatric); I48.0 Paroxysmal atrial fibrillation; R29.6 Repeated falls; G72.9 Myopathy, unspecified; M06.9 Rheumatoid arthritis, unspecified; G25.81 Restless legs syndrome; I12.9 Hypertensive chronic kidney disease with stage 1 through stage 4 chronic kidney disease, or unspecified chronic kidney disease; N18.9 Chronic kidney disease, unspecified; W19.XXXA Unspecified fall, initial encounter; Z90.710 Acquired absence of both cervix and uterus; Z90.49 Acquired absence of other specified parts of digestive tract; Z98.890 Other specified postprocedural states; Z90.12 Acquired absence of left breast and nipple
CPT/HCPCS: 36415; 80048; 82565; 85014; 85018; 85049; J7512

== ENCOUNTER 2021-11-28 13:42 | Outpatient (CLI) | payer MEDICARE, OTHER ==
[2021-11-28 13:54] LABS: Bilirubin Negative (Negative); Blood, Urine Trace (Negative); Glucose, Urine (Dipstick) Negative (Negative); Ketone, Urine Negative (Negative); Leukocyte Small (Negative); Nitrite Negative (Negative); Protein, Urine (Dipstick) Negative (Neg-Trace); Urobilinogen 0.2 mg/dL (Less than 2)
[2021-11-28 13:59] LABS: Bacteria/HPF Rare-Few HPF (None Seen); Clarity Hazy (Clear); RBC/HPF None Seen HPF (0-3); Specific Gravity, Urine 1.028 (1.002-1.036); WBC/HPF Greater Than 50 HPF (0-3)
[2021-11-28 14:00] LABS: Mucous/LPF Few LPF (<2+)
[2021-11-28 14:13] LABS: Anion Gap 15 mmol/L (10-20); BUN (Urea Nitrogen) 14 mg/dL (9.8-20.1); Calc. Creatinine Clearance 0 mL/min (70-130); Calcium 9.5 mg/dL (7.8-10.44); Carbon Dioxide 25 mmol/L (23-31); Chloride 108 mmol/L (98-107); Glucose 79 mg/dL (83-110); Sodium 144 mmol/L (136-145)
[2021-11-28 15:21] LABS: #Basophils 0.1 thou/uL (0.0-0.2); #Eosinphils 0.2 thou/uL (0.0-0.7); #Lymphocytes 1.6 thou/uL (1.20-3.40); #Monocytes 0.5 thou/uL (0.11-0.59); #Neutrophils 2.1 thou/uL (1.40-6.50); %Basophils 1.4 % (0.0-1.0); %Eosinophils 4.8 % (0.0-10.0); %Lymphocytes 35.6 % (21.0-51.0); %Monocytes 10.6 % (0.0-10.0); %Neutrophils 47.6 % (42.0-75.0); Anisocytosis SLIGHT = 6-15 cells (100X) (0-5/hpf); Hemoglobin 10.7 g/dL (12.0-16.0); MDiff Complete? YES; Mean Corpuscular HGB CONC 28.9 g/dL (32.0-36.0); Mean Corpuscular Volume 86.4 fL (78.0-98.0); Mean Platelet Volume 6.7 fL (7.4-10.4); Platelet Count 271 thou/uL (130-400); RBC Distribution Width 23.3 % (11.5-14.5); Red Blood Cell (RBC) Count 4.28 mill/uL (4.20-5.40); White Blood Cell (WBC) Count 4.4 thou/uL (4.8-10.8)
== END 2021-11-28 13:43 | disposition home or self-care (01) ==
LOC: MADLAB 13:42
PROVIDERS: ATTEND Internal Medicine
DX: E87.6 Hypokalemia (principal); I13.0 Hypertensive heart and chronic kidney disease with heart failure and stage 1 through stage 4 chronic kidney disease, or unspecified chronic kidney disease; I50.9 Heart failure, unspecified; N18.9 Chronic kidney disease, unspecified; D63.1 Anemia in chronic kidney disease
CPT/HCPCS: 80048; 81003; 81015; 85025

== ENCOUNTER 2022-01-12 13:23 | Outpatient (CLI) | payer MEDICARE, OTHER ==
[2022-01-12 14:11] LABS: Bilirubin Negative (Negative); Blood, Urine Small (Negative); Glucose, Urine (Dipstick) Negative (Negative); Ketone, Urine Negative (Negative); Leukocyte Trace (Negative); Nitrite Negative (Negative); Protein, Urine (Dipstick) Negative (Neg-Trace); Specific Gravity, Urine 1.015 (1.005-1.030); Urobilinogen 0.2 mg/dL (Less than 2)
[2022-01-12 14:49] LABS: ALT (SGPT) Less than 7 U/L (8-55); AST (SGOT) 19 U/L (5-34); Albumin 3.2 g/dL (3.4-4.8); Alkaline Phosphatase 93 U/L (40-110); Anion Gap 14 mmol/L (10-20); BUN (Urea Nitrogen) 21 mg/dL (9.8-20.1); Bilirubin, Direct 0.3 mg/dL (0.1-0.3); Bilirubin, Total 0.4 mg/dL (0.2-1.2); Calc. Creatinine Clearance 0 mL/min (70-130); Calcium 9.1 mg/dL (7.8-10.44); Carbon Dioxide 24 mmol/L (23-31); Cardiac Risk 2.5 (Less than 4.5); Chloride 105 mmol/L (98-107); Cholesterol 86 mg/dl (< 200 Desired); Glucose 76 mg/dL (83-110); HDL Cholesterol 35 mg/dL (>60 Neg Risk); LDL Cholesterol, Calculated 37 mg/dL; Protein, Total 8.2 g/dL (5.8-8.1); Sodium 139 mmol/L (136-145); Triglycerides 72 mg/dL (Less than 150)
[2022-01-12 14:53] LABS: Thyroid Stimulating Hormone 2.5452 uIU/mL (0.35-4.94)
[2022-01-12 15:22] LABS: Anisocytosis SLIGHT = 6-15 cells (100X) (0-5/hpf); Eosinophils 7 % (0-10); Hemoglobin 9.3 g/dL (12.0-16.0); Lymphocytes 15 % (21-51); MDiff Complete? YES; Mean Corpuscular HGB CONC 30.7 g/dL (32.0-36.0); Mean Corpuscular Hemoglobin 27.1 pg (27.0-31.0); Mean Corpuscular Volume 88.5 fL (78.0-98.0); Monocytes 9 % (0-10); Neutrophil 67 % (42-75); Platelet Count 266 thou/uL (130-400); Polychromasia SLIGHT = 2-3 cells (100X) (0-2/hpf); RBC Distribution Width 19.1 % (11.5-14.5); Reactive Lymphocytes 2 % (0-10); Red Blood Cell (RBC) Count 3.43 mill/uL (4.20-5.40); White Blood Cell (WBC) Count 4.6 thou/uL (4.8-10.8)
[2022-01-12 18:06] LABS: Clarity Cloudy (Clear)
[2022-01-12 18:09] LABS: Bacteria/HPF 3+ HPF (None Seen); Squamous Epithelial 0-3 HPF (0-3); Urine Culture Reflex Yes Yes; WBC/HPF 21-50 HPF (0-3)
[2022-01-12 23:12] LABS: Vitamin D, 25 Hydroxy 40.5 ng/ml (> 30.0)
== END 2022-01-12 13:24 | disposition home or self-care (01) ==
LOC: MADLAB 13:23
PROVIDERS: ATTEND Internal Medicine
DX: I48.0 Paroxysmal atrial fibrillation (principal); I50.9 Heart failure, unspecified; N18.9 Chronic kidney disease, unspecified; D63.1 Anemia in chronic kidney disease; D47.3 Essential (hemorrhagic) thrombocythemia; E03.9 Hypothyroidism, unspecified
CPT/HCPCS: 80048; 80061; 80076; 81001; 82306; 82607; 84443; 85025; 87077; 87086; 87186

== ENCOUNTER 2022-05-13 12:14 | Emergency (ER) | payer MEDICARE, OTHER ==
[2022-05-13 13:16] LABS: INR-International Normal Ratio 1.6; Prothrombin Time 19.6 sec (12.0-14.7)
[2022-05-13 13:17] LABS: PTT 37.9 sec (22.9-36.1)
[2022-05-13] MEDS ORDERED: Cefepime 2 GM VIAL ONE (13:26)
[2022-05-13 13:27] LABS: ALT (SGPT) Less than 7 U/L (8-55); AST (SGOT) 10 U/L (5-34); Albumin 2.8 g/dL (3.4-4.8); Alkaline Phosphatase 92 U/L (40-110); Anion Gap 14 mmol/L (10-20); BUN (Urea Nitrogen) 28 mg/dL (9.8-20.1); Bilirubin, Total 1.1 mg/dL (0.2-1.2); Calc. Creatinine Clearance 0 mL/min (70-130); Carbon Dioxide 25 mmol/L (23-31); Chloride 96 mmol/L (98-107); Estimated GFR 43; Globulin 4.8 g/dL (2.4-3.5); Glucose 80 mg/dL (83-110); Magnesium 1.8 mg/dL (1.6-2.6); Potassium 3.7 mmol/L (3.5-5.1); Protein, Total 7.6 g/dL (5.8-8.1); Sodium 131 mmol/L (136-145)
[2022-05-13] MEDS ORDERED: Sodium Chloride 0.9% 100 ML ONE (13:27)
[2022-05-13 13:30] LABS: Hemoglobin 9.4 g/dL (12.0-16.0); Lymphocytes 3 % (21-51); MDiff Complete? YES; Mean Corpuscular HGB CONC 29.9 g/dL (32.0-36.0); Mean Corpuscular Hemoglobin 27.5 pg (27.0-31.0); Mean Corpuscular Volume 91.9 fL (78.0-98.0); Mean Platelet Volume 8.9 fL (7.4-10.4); Monocytes 3 % (0-10); Neutrophil 92 % (42-75); Nucleated RBC 1 % (0); Platelet Count 247 thou/uL (130-400); Platelet Morphology Comment Appears Adequate; Polychromasia SLIGHT = 2-3 cells (100X) (0-2/hpf); RBC Distribution Width 14.4 % (11.5-14.5); Reactive Lymphocytes 2 % (0-10); Red Blood Cell (RBC) Count 3.44 mill/uL (4.20-5.40); White Blood Cell (WBC) Count 17.4 thou/uL (4.8-10.8)
[2022-05-13] MEDS ORDERED: Lactated Ringer's 1,000 ML ONE (13:48)
[2022-05-13] MEDS ORDERED: Morphine 4 MG/ML VIAL ONE ×2 (13:48→17:02)
[2022-05-13 13:50] LABS: SARS-CoV-2 NAA Rapid Test Not Detected (NotDetected)
[2022-05-13] MEDS ORDERED: Sodium Chloride 0.9% 250 ML 250 ML ONE (14:17)
[2022-05-13] MEDS ORDERED: Vancomycin HCl 500 MG VIAL ONE (14:17)
[2022-05-13 14:22] LABS: Bilirubin Moderate (Negative); Blood, Urine Large (Negative); Clarity Cloudy (Clear); Glucose, Urine (Dipstick) Negative (Negative); Ketone, Urine Trace mg/dL (Negative); Leukocyte Small (Negative); Nitrite Negative (Negative); Protein, Urine (Dipstick) 30 mg/dL (Neg-Trace); Specific Gravity, Urine 1.025 (1.005-1.030); Urobilinogen 0.2 mg/dL (Less than 2)
[2022-05-13 14:34] LABS: Squamous Epithelial 0-3 HPF (0-3); WBC/HPF 21-50 HPF (0-3)
[2022-05-13 14:35] LABS: Bacteria/HPF 2+ HPF (None Seen)
[2022-05-13] MEDS ORDERED: Ondansetron PF 4 MG/2 ML Vial ONE (17:03)
== END 2022-05-13 17:25 | disposition short-term general hospital (02) ==
LOC: MADERS 12:14
DX: A41.9 Sepsis, unspecified organism (principal); N39.0 Urinary tract infection, site not specified; L03.114 Cellulitis of left upper limb; E87.1 Hypo-osmolality and hyponatremia; R79.1 Abnormal coagulation profile; I48.91 Unspecified atrial fibrillation; I10 Essential (primary) hypertension; K21.9 Gastro-esophageal reflux disease without esophagitis; Z20.822 Contact with and (suspected) exposure to COVID-19; Z85.3 Personal history of malignant neoplasm of breast; Z79.01 Long term (current) use of anticoagulants; Z79.899 Other long term (current) drug therapy; Z86.718 Personal history of other venous thrombosis and embolism
CPT/HCPCS: 36415; 51701; 71045; 80053; 81003; 81015; 83605; 83735; 85025; 85379; 85610; 85730; 86140; 87040; 87077; 87086; 87186; 93005; 94760; 96365; 96366; 96367; 96375; 96376; J0692; J2270; J2405; J3370; J3490; J7050; J7120

== ENCOUNTER 2022-06-09 15:31 | Emergency (ER) | payer OTHER, MEDICARE ==
[2022-06-09] MEDS ORDERED: Acetaminophen 500 MG TAB ONE (17:19)
== END 2022-06-09 17:40 | disposition home or self-care (01) ==
LOC: MADERS 15:31
DX: S70.02XA Contusion of left hip, initial encounter (principal); S80.12XA Contusion of left lower leg, initial encounter; I10 Essential (primary) hypertension; K21.9 Gastro-esophageal reflux disease without esophagitis; I48.91 Unspecified atrial fibrillation; W01.0XXA Fall on same level from slipping, tripping and stumbling without subsequent striking against object, initial encounter; Y93.G3 Activity, cooking and baking; Y92.000 Kitchen of unspecified non-institutional (private) residence as the place of occurrence of the external cause; Z85.3 Personal history of malignant neoplasm of breast
CPT/HCPCS: 72170

== ENCOUNTER 2022-09-23 11:56 | Emergency (ER) | payer MEDICARE, MEDICAID ==
[~2022-09-23 11:56] MED LIST: Lactated Ringer's 1,000 ML BAG ONE
[2022-09-23 14:39] LABS: ALT (SGPT) 7 U/L (8-55); AST (SGOT) 23 U/L (5-34); Albumin 2.2 g/dL (3.4-4.8); Alkaline Phosphatase 63 U/L (40-110); Anion Gap 17 mmol/L (10-20); BUN (Urea Nitrogen) 31 mg/dL (9.8-20.1); Bilirubin, Total 1.7 mg/dL (0.2-1.2); CK (CPK) 344 U/L (29-168); Calc. Creatinine Clearance 0 mL/min (70-130); Calcium 8.7 mg/dL (7.8-10.44); Carbon Dioxide 24 mmol/L (23-31); Chloride 108 mmol/L (98-107); Estimated GFR 30; Globulin 2.6 g/dL (2.4-3.5); Glucose 124 mg/dL (83-110); Magnesium 1.6 mg/dL (1.6-2.6); Potassium 3.5 mmol/L (3.5-5.1); Protein, Total 4.8 g/dL (5.8-8.1); Sodium 145 mmol/L (136-145)
[2022-09-23 15:03] LABS: Hemoglobin 4.6 g/dL (12.0-16.0); Mean Corpuscular HGB CONC 31.6 g/dL (32.0-36.0); Mean Corpuscular Hemoglobin 31.2 pg (27.0-31.0); Mean Corpuscular Volume 98.5 fl (78.0-98.0); Platelet Count 98 10x3/uL (130-400); RBC Distribution Width 20.4 % (11.5-14.5); Red Blood Cell (RBC) Count 1.47 mill/uL (4.20-5.40); White Blood Cell (WBC) Count 1.3 10x3/uL (4.8-10.8)
[2022-09-23 15:05] LABS: MDiff Complete? YES; Manual Diff?? YES
[2022-09-23 15:11] LABS: Band 1 % (5-11); Lymphocytes 51 % (21-51); Monocytes 39 % (0-10); Nucleated RBC 37 % (0); Reactive Lymphocytes 9 % (0-10)
[2022-09-23 15:16] LABS: Hypochromia MARKED = >30 cells (100X) (0-5/hpf); Platelet Morphology Comment Appears Decreased
[2022-09-23 15:17] LABS: Anisocytosis MODERATE=16-30 cells (100X) (0-5/hpf); Elliptocytes SLIGHT = 2-5 cells (100X) (0-1/hpf); Macrocytosis SLIGHT = 6-15 cells (100X) (0-5/hpf); Microcytosis MODERATE=15-30 cells (100X) (0-5/hpf); Polychromasia SLIGHT = 2-3 cells (100X) (0-2/hpf)
[2022-09-23 15:18] LABS: Bicarbonate (HCO3v) 26.8 mmol/L (22.0-28.0); CO2 Tension (PvCO2) 35.2 mmHg (42.0-51.0); Calcium, Ionized 1.26 mmol/L (1.15-1.33); Chloride 108 mmol/L (98-107); Hemoglobin - Calc 4.7 g/dL (12.0-16.0); Potassium 3.3 mmol/L (3.5-5.1); Sodium 144 mmol/L (138-145); T. Carbon Dioxide 27.8 mmol/L (22.0-28.0); vO2 Saturation-calc 99.8 % (60.0-85.0)
[2022-09-23 15:20] LABS: INR-International Normal Ratio 1.4; PTT 33.7 sec (22.9-36.1); Prothrombin Time 17.9 sec (12.0-14.7)
[2022-09-23 15:40] LABS: CKMB 4.7 ng/mL (0-6.6)
[2022-09-23 16:12] LABS: SARS-CoV-2 NAA Rapid Test Not Detected (NotDetected)
[2022-09-23] MEDS ORDERED: Sodium Chloride 0.9% 100 ML ONE (16:32)
[2022-09-23] MEDS ORDERED: Cefepime 2 GM VIAL ONE (16:32)
[2022-09-23 16:37] LABS: Bilirubin Small (Negative); Blood, Urine Trace (Negative); Glucose, Urine (Dipstick) Negative (Negative); Ketone, Urine Negative (Negative); Leukocyte Negative (Negative); Nitrite Negative (Negative); Protein, Urine (Dipstick) 30 mg/dL (Neg-Trace); Specific Gravity, Urine 1.015 (1.005-1.030); pH, Urine 5.5 (5.0-9.0)
[2022-09-23 16:44] LABS: Bacteria/HPF 4+ HPF (None Seen); Clarity Slightly Cloudy (Clear); RBC/HPF 0-3 HPF (0-3); Squamous Epithelial None Seen HPF (0-3); WBC/HPF 0-3 HPF (0-3)
[2022-09-23] MEDS ORDERED: Vancomycin HCl 500 MG VIAL ONE (18:20)
[2022-09-23] MEDS ORDERED: Vancomycin 1 GM VIAL ONE (18:20)
[2022-09-23] MEDS ORDERED: Sodium Chloride 0.9% 250 ML 250 ML ONE (18:21)
[2022-09-23 19:50] LABS: CKMB 8.7 ng/mL (0-6.6)
[2022-09-23] MEDS ORDERED: Apixaban 2.5 MG TAB PO SCH (21:00)
== END 2022-09-23 21:58 | disposition short-term general hospital (02) ==
LOC: MADERS 11:56
DX: D61.818 Other pancytopenia (principal); N17.9 Acute kidney failure, unspecified; A41.9 Sepsis, unspecified organism; R09.02 Hypoxemia; I21.4 Non-ST elevation (NSTEMI) myocardial infarction; R79.0 Abnormal level of blood mineral; R79.1 Abnormal coagulation profile; I10 Essential (primary) hypertension; K21.9 Gastro-esophageal reflux disease without esophagitis; I27.20 Pulmonary hypertension, unspecified; Z20.822 Contact with and (suspected) exposure to COVID-19; Z79.02 Long term (current) use of antithrombotics/antiplatelets; Z79.899 Other long term (current) drug therapy
CPT/HCPCS: 0240U; 36430; 70450; 71045; 72125; 80053; 82330; 82435; 82550; 82553; 82803; 82962; 83605; 83735; 83880; 84132; 84295; 84484 ×2; 85014; 85025; 85379; 85610; 85730; 86850; 86900; 86901; 86920; 87040; 87077; 87086; 87186; 93005; 94760; P9016; 36416; 36556; 51702; 81003; 81015; 82274; 85060; 96361; 96365; 96366; 96372; 36415-59; J0692; J1650; J3370; J3490; J7050; J7120